=== PATIENT | female | born 1970 | race Caucasian/White ===

== ENCOUNTER 2018-09-30 19:27 | Emergency (ER) | payer OTHER ==
[~2018-09-30] VITALS: Ht 154.9 cm; Wt 84.4 kg
[2018-09-30 19:31] VITALS: BP 149/79
--- NOTE | 2018-09-30 19:36 | NUR ---
PT AMBULATED TO BED 5 WITH VSS. ACCOMPAINED BY .
--- NOTE | 2018-09-30 19:51 | NUR ---
us at bedside.
--- NOTE | 2018-09-30 19:52 | NUR ---
PT BIB SELF AFTER TOLD HER TO SEEK EMERGENCY SERVICES. PT STATES THAT HER LAST BLOOD WORK SHOWED HEMOGLOBIN IS AT 8.5. PT HAS BEEN ON HER MENSTRUAL CYCLE X1 WEEK, WITH MODERATE BLOODY DRAINAGE, PT REPORTS 4 PADS PER DAY, PT REPORTS THICK CLOTS. PT STATES SHE HAS ABD CRAMPING AT 5/10 AT THIS TIME. PT AAOX4 WITH EVEN AND STEADY GAIT; RR NON-LABORED; HR EVEN AND REGULAR; VSS; PATIENT POSITIONED FOR COMFORT; HOB ELEVATED; BEDRAILS UP X2; BED DOWN. ER MD MADE AWARE OF PT STATUS.
[2018-09-30 19:54] LABS: BASOPHILS # (AUTO) 0.1 K/uL (0.00-0.22); BASOPHILS % (AUTO) 0.9 % (0.0-2.0); EOSINOPHILS # (AUTO) 0.1 K/uL (0-0.4); EOSINOPHILS % (AUTO) 1.8 % (0.0-4.0); HEMATOCRIT 29.9 % (36-48); HEMOGLOBIN 8.9 g/dL (12.0-16.0); LYMPHOCYTES # (AUTO) 2.1 K/uL (2.5-16.5); LYMPHOCYTES % (AUTO) 26.9 % (20.5-51.1); MEAN CORPUSCULAR HEMOGLOBIN 18 pg (27-31); MEAN CORPUSCULAR HGB CONC 30 g/dL (33-37); MEAN CORPUSCULAR VOLUME 60.5 fL (80-94); MONOCYTES # (AUTO) 0.6 K/uL (0.8-1.0); MONOCYTES % (AUTO) 8.2 % (1.7-9.3); NEUTROPHILS # (AUTO) 4.8 K/uL (1.8-7.7); NEUTROPHILS % (AUTO) 62.2 % (42.2-75.2); PLATELET COUNT (AUTO) 332 K/uL (140-450); RED BLOOD CELL COUNT(AUTO) 4.94 MIL/uL (4.20-5.40); RED CELL DISTRIBUTION WIDTH 19.9 % (11.6-13.7); WHITE BLOOD COUNT (AUTO) 7.7 K/uL (4.8-10.8)
--- NOTE | 2018-09-30 20:04 | NUR ---
Dr. Naylor evaluating patient at bedside.
--- NOTE | 2018-09-30 20:11 | NUR ---
US tech at bedside for exam.
--- NOTE | 2018-09-30 20:14 | NUR ---
Dr. Naylor re-evaluating patient at bedside.
[2018-09-30 20:17] LABS: ALBUMIN 3.8 g/dL (3.4-5.0); ANION GAP 12.9 (8-16); CARBON DIOXIDE 26.8 mmol/L (21-32); CREATININE 0.7 mg/dL (0.6-1.3); POTASSIUM 3.7 mmol/L (3.5-5.1); TOTAL BILIRUBIN 0.2 mg/dL (0.0-1.0)
--- NOTE | 2018-09-30 20:25 | NUR ---
Female Hardware Installer osmel sumner accompanied [facility] for female patient for Ultrasound.
[2018-09-30 20:35] LABS: PROTHROMBIN TIME 9.5 secs (10.8-13.4)
[2018-09-30 21:09] VITALS: BP 139/78
--- NOTE | 2018-09-30 21:09 | NUR ---
Patient discharged with v/s stable. Written and verbal after care instructions given and explained. Patient alert, oriented and verbalized understanding of instructions. Ambulatory with steady gait. All questions addressed prior to discharge. ID band removed. Patient advised to follow up with PMD. Rx of PREMARIN given. Patient educated on indication of medication including possible reaction and side effects. Opportunity to ask questions provided and answered.
== END 2018-09-30 21:09 | disposition home or self-care (01) ==
LOC: MED 19:27
DX: D25.9 Leiomyoma of uterus, unspecified (principal); D64.9 Anemia, unspecified; Z88.8 Allergy status to other drugs, medicaments and biological substances
CPT/HCPCS: 36415; 76830; 80053; 81002; 81025; 85025; 85610; 85730; 99284; Q0092

== ENCOUNTER 2018-11-03 07:48 | Emergency (ER) | payer OTHER ==
[~2018-11-03] VITALS: Ht 154.9 cm; Wt 86.2 kg
--- NOTE | 2018-11-03 07:51 | NUR ---
PT AMBULATES TO BED 7
[2018-11-03 07:52] VITALS: BP 195/96
--- NOTE | 2018-11-03 08:12 | NUR ---
CHEST PAIN WITH DEEP BREATHING AND WITH LT. ARM MOVEMENT. MINIMAL SOB.HX: HTN. TAKING METOPROLOL,COLACE,HCTZ,TYLENOL,FERROUS SULFATE . DENIES N/V/D; SKIN IS PINK/WARM/DRY; AAOX4 WITH EVEN AND STEADY GAIT; LUNGS CLEAR BL; HR EVEN AND REGULAR; PT DENIES ANY FEVER, OR COUGH AT THIS TIME; PATIENT STATES PAIN OF 8/10 AT THIS TIME; VSS; PATIENT POSITIONED FOR COMFORT; HOB ELEVATED; BEDRAILS UP X2; BED DOWN. ER MD MADE AWARE OF PT STATUS.
[2018-11-03] MEDS ORDERED: FERR325E14 PO (08:25)
[2018-11-03] MEDS ORDERED: KETOROLAC 60 MG/2 ML VIAL IM ONE (08:25)
[2018-11-03] MEDS ORDERED: DOCU-299 PO (08:25)
[2018-11-03] MEDS ORDERED: HYDR12.51 PO (08:25)
[2018-11-03] MEDS ORDERED: METO25TE2 PO (08:25)
[2018-11-03] MEDS ORDERED: LOSA100T51 PO (08:25)
[2018-11-03] MEDS ORDERED: FAMOTIDINE 20 MG TAB PO ONE (08:25)
--- NOTE | 2018-11-03 08:29 | NUR ---
XRAY AT BEDSIDE
[2018-11-03 09:39] VITALS: BP 160/75
--- NOTE | 2018-11-03 09:40 | NUR ---
Patient discharged with v/s stable. Written and verbal after care instructions given and explained. Patient alert, oriented and verbalized understanding of instructions. Ambulatory with steady gait. All questions addressed prior to discharge. ID band removed. Patient advised to follow up with PMD. Rx of PEPCID AND EC-NAPROSYN given. Patient educated on indication of medication including possible reaction and side effects. Opportunity to ask questions provided and answered.
== END 2018-11-03 09:40 | disposition home or self-care (01) ==
LOC: MED 07:48
DX: M94.0 Chondrocostal junction syndrome [Tietze] (principal); I10 Essential (primary) hypertension; F17.200 Nicotine dependence, unspecified, uncomplicated; D64.9 Anemia, unspecified; Z88.8 Allergy status to other drugs, medicaments and biological substances
CPT/HCPCS: 36415; 71045; 84484; 93005; 96372; 99284; J1885; Q0092

== ENCOUNTER 2021-08-16 14:05 | Emergency (ER) | payer OTHER ==
[~2021-08-16] VITALS: Ht 154.9 cm; Wt 83.5 kg
[~2021-08-16 14:05] MED LIST: DOCU-299 PO; FERR325E14 PO; HYDR12.51 PO; LOSA100T51 PO; METO25TE2 PO
[2021-08-16 14:15] VITALS: BP 199/115
--- NOTE | 2021-08-16 14:18 | NUR ---
PT SEEN IN TRIAGE AND ESCORTED TO BED 11
--- NOTE | 2021-08-16 14:20 | NUR ---
51 Y/O F BIB SELF. WITH AT BEDSIDE. AMBULATORY. PT COMPLAINED OF UNKNOWN SUBSTANCE INSERTED INSIDE HER VAGINA. PT STATED UNABLE TO SLEEP AND FEELING PARANOID. DENIES PAIN, N/V, HEADACHE, OR CHEST PAIN. BED IS LOCKED AND IN LOWEST POSITION. PMH: HYSTERECTOMY MEDS: DENIES COMPAZINE
--- NOTE | 2021-08-16 14:53 | NUR ---
TA ALBERTS AT PATIENT'S BEDSIDE.
--- NOTE | 2021-08-16 15:10 | NUR ---
OBTAINED URINE DIPSTICK
--- NOTE | 2021-08-16 15:23 | NUR ---
XR TECH AT BEDSIDE.
--- NOTE | 2021-08-16 15:38 | NUR ---
TA ALBERTS AT BEDSIDE DISCUSSING FURTHER REGARDING MEDICAL PLANS.
[2021-08-16 16:00] VITALS: BP 199/115
--- NOTE | 2021-08-16 16:00 | NUR ---
Patient discharged with v/s stable. Written and verbal after care instructions given and explained. Patient verbalized understanding. Ambulatory with steady gait. All questions addressed prior to discharge. Advised to follow up with PMD.
== END 2021-08-16 16:00 | disposition home or self-care (01) ==
LOC: MED 14:05
DX: I10 Essential (primary) hypertension (principal); Z79.899 Other long term (current) drug therapy; Z88.8 Allergy status to other drugs, medicaments and biological substances; Z90.710 Acquired absence of both cervix and uterus
CPT/HCPCS: 36415; 72170; 81002; 87491; 99284; Q0092